=== PATIENT | female | born 1995 | race Caucasian/White ===

== ENCOUNTER 2017-06-08 00:40 | Emergency (ER) | payer BC ==
[~2017-06-08] VITALS: Ht 162.6 cm; Wt 52.7 kg
[~2017-06-08 00:40] MED LIST: BCPILLS PO
[2017-06-08 00:51] VITALS: TEMP 36.4; Ht 162.6 cm; Wt 52.7 kg
--- NOTE | 2017-06-08 00:54 | EMERGENCY ROOM VISIT NOTE ---
History Report prepared by Russ: Claribel Manning Under the Supervision of: Dr. Hunter Urias M.D. First contact with patient: 00:44 Chief Complaint: ALCOHOL OVERDOSE Stated Complaint: ALCOHOL OVERDOSE History of Present Illness The patient is a 21 year old white female with no pertinent past medical history who presents to the ED with a cc of altered mental status beginning shortly prior to arrival. Per friend, the patient went drinking from 2130 to 2300, came home, and was not arousable or responsive. No concerns for fall or trauma. No hx of seizures. Per friend, the patient is not on blood thinners. POC sugar was over 100. Source of History: friend History Limited By: AMS Onset: shortly prior to arrival Position: other (global) Quality: other (AMS) Review of Systems See HPI for pertinent positives and negatives. A total of ten systems were reviewed and were otherwise negative. Past Medical & Surgical Unable to obtain medical history sheet secondary to AMS. Family History Unable to obtain medical history sheet secondary to AMS. Social History Smoking Status: Never Smoker Unable to obtain medical history sheet secondary to AMS. Current/Historical Medications Scheduled Control Pills ( Control Pills), 1 TAB PO DAILY Allergies Coded Allergies: Gluten (Unverified Allergy, Severe, INTOLERANT, 07/26/16) Penicillins (Unverified Allergy, Severe, THROAT SWELLING, 07/26/16) Physical Exam Vital Signs Date Time Temp Pulse Resp B/P (MAP) Pulse Ox O2 Delivery O2 Flow Rate FiO2 06/08/17 04:50 74 16 96/52 96 Room Air 06/08/17 04:06 73 06/08/17 02:35 69 15 96 Room Air 06/08/17 02:30 97/55 06/08/17 02:05 66 12 97 06/08/17 02:00 88/55 06/08/17 01:35 64 16 97 06/08/17 01:30 94/52 06/08/17 01:10 63 16 97 Room Air 06/08/17 01:00 87/57 06/08/17 00:56 57 06/08/17 00:51 Room Air 06/08/17 00:51 36.4 87 18 101/75 100 Room Air 06/08/17 00:47 101/75 Physical Exam GENERAL: Awake, alert, well-appearing, NAD HENT: Normocephalic, atraumatic. EYES: Normal conjunctiva. Sclera non-icteric. PERRL and dilated 6 mm. NECK: Supple. No nuchal rigidity. FROM. RESPIRATORY: CTAB, no rhonchi, wheezing, crackles CARDIAC: RRR, no MRG ABDOMEN: Soft, NTND, BS+ MSK: No chest wall TTP, no LE edema. No obvious signs of trauma to head, back, face, chest, back, or extremities. NEURO: GCS 15, CN 2-12 intact, moves all 4s on command SKIN: No rash or jaundice noted. Limited secondary to AMS. Medical Decision & Procedures Laboratory Results 06/08/17 00:52 Test 06/08/17 00:52 Anion Gap 9.0 mmol/L (3-11) Est Creatinine Clear Calc Drug Dose 85.5 ml/min Estimated GFR () 110.4 Estimated GFR (Non- 95.3 BUN/Creatinine Ratio 18.8 (10-20) Calcium Level 8.6 mg/dl (8.5-10.1) Human Chorionic Gonadotropin, Qual NEG (NEG) Ethyl Alcohol mg/dL 304.0 mg/dl (0-3) Laboratory results reviewed by ok ED Course 0040: The patient was evaluated in room B11B. A complete history and physical exam was performed. 0535: I checked on the patient. She is alert and oriented x3, has a GCS of 15, and is in no pain. The patient is clinically sober and is able to get a ride home via taxi. Medical Decision The patient is a 21 year old white female with no pertinent past medical history who presents to the ED with a cc of altered mental status beginning shortly prior to arrival. Differentials include: intoxication and hypoglycemia. Patient was seen and evaluated the bedside. Patient purportedly was striking some tequila was, about an hour and a half. Patient was picked up by a friend and taken home which point she was unresponsive and not moving. She called EMS. EMS transported the patient was concerned the patient was still unresponsive to pain. Upon presentation patient was reading spontaneously and protect her airway. Patient moved all fours to pain. Patient EtOH > 300. Patient was reevaluated and was able to ambulate to the restroom. Patient was in her 3 with a GCS of 15. Patient denied any pain. Patient did have several friends of the bedside. Patient was cleared and deemed clinically sober. Patient was given strict follow-up, discharge, and return precautions. Patient was also counseled on alcohol cessation. Patient discharged home. Medication Reconcilliation Current Medication List: was personally reviewed by me Blood Pressure Screening Patient's blood pressure: Normal blood pressure Impression Primary Impression: Alcoholic intoxication Additional Impression: Encounter for alcohol cessation counseling Scribe Attestation The scribe's documentation has been prepared under my direction and personally reviewed by me in its entirety. I confirm that the note above accurately reflects all work, treatment, procedures, and medical decision making performed by me. Departure Information Dispostion Home / Self-Care Referrals No Doctor, Assigned (PCP) Patient Instructions Alcohol Abuse - [facility], Alcohol Intoxication - [facility], [facility] Additional Instructions Please return to the emergency department if you have worsening or recurrent symptoms not amenable to at-home treatment. Please call for a follow-up appointment with her primary care physician. Please take your medications as prescribed. If you have other concerns and/or complaints please feel free to also call your primary care physician's office or return the ED for further evaluation, management, and treatment. You have been examined and treated today on an emergency basis only. This is not a substitute for, or an effort to provide, complete comprehensive medical care. It is impossible to recognize and treat all injuries or illnesses in a single emergency department visit. It is therefore important that you follow up closely with [facility]. Call as soon as possible for an appointment. Thank you for your time and consideration. I look forward to speaking with you again soon. Please don't hesitate to call us if you have any questions. Consider abstaining or moderating your alcohol use as it can be harm to yourself and others. Problem Qualifiers Primary Impression: Alcoholic intoxication Complication of substance-induced condition: uncomplicated Qualified Codes: F10.920 - Alcohol use, unspecified with intoxication, uncomplicated
[2017-06-08 01:28] LABS: PREG INTERNAL NEGATIVE QC NEG CLEAR BACKGROUND; PREG INTERNAL POSITIVE QC POS CONTROL LINE
[2017-06-08 01:30] LABS: BUN/CREATININE RATIO 18.8 (10-20); CALCIUM 8.6 mg/dl (8.5-10.1); CREATININE 0.88 mg/dl (0.60-1.20); POTASSIUM 3.1 mmol/L (3.5-5.1)
[2017-06-08 05:58] VITALS: BP 102/64; PULSE 74; O2SAT 99
== END 2017-06-08 05:59 | disposition home or self-care (01) ==
LOC: EDBD 00:40 → C.EDB 00:41
DX: T51.91XA Toxic effect of unspecified alcohol, accidental (unintentional), initial encounter (principal); Y90.8 Blood alcohol level of 240 mg/100 ml or more